=== PATIENT | male | born 1990 | race African-American/Black ===

== ENCOUNTER 2018-03-13 16:44 | Emergency (ER) | payer MEDICARE, OTHER ==
[~2018-03-13] VITALS: Ht 172.7 cm; Wt 112.3 kg
[2018-03-13 16:51] VITALS: BP 137/95
[2018-03-13] MEDS ORDERED: HYDROCODONE/ACETAMINOPHEN 5-325 MG TABLET PO ONE (17:15)
== END 2018-03-13 18:14 | disposition home or self-care (01) ==
LOC: EMS 16:46
DX: M79.671 Pain in right foot (principal)
CPT/HCPCS: 99283